=== PATIENT | female | born 1935 | race Caucasian/White ===

== ENCOUNTER → 2016-12-23 | Outpatient (CLI) | payer MEDICARE | LOC: RAD 16:02 | DX: R05 Cough (principal); R91.8 Other nonspecific abnormal finding of lung field | CPT/HCPCS: 71020 ==

== ENCOUNTER → 2020-11-06 | Outpatient (CLI) | payer MEDICARE ==
[~2020-11-06] MED LIST: ACETAMINOPHEN-1 EAC1 PO; AMLODIPINE BESYL5 MG PO; ATENOLOL25 MG PO; FERROUS SULFAT325 MG PO; FISH OIL 1,2001 EAC7 PO; FLECAINIDE ACET50 MG PO; HYDRALAZINE HCL50 MG PO; IMDUR ER TAB 3030 MG PO; LASIX20 MG PO; LOSARTAN POTAS100 MG PO; MAG-OX 400 TAB400 MG PO; MAXZIDE 37.5/21 EACH PO; MULTI-VITAMIN1 EACH PO; OMEPRAZOLE40 MG PO; PRADAXA 150 MG150 MG PO; TESSALON PERLE100 MG PO; VITAMIN B-121000 MCG PO; VITAMIN C250 MG PO
[2020-11-06 12:17] LABS: HEMOGLOBIN 7.9 gm/dl (12.3-15.3)
== END ==
LOC: LAB 11:41
PROVIDERS: Internal Medicine Hematology & Oncology; Nurse Practitioner Family
DX: I50.32 Chronic diastolic (congestive) heart failure (principal); N18.32 Chronic kidney disease, stage 3b; D64.9 Anemia, unspecified
CPT/HCPCS: 36415; 80048; 85014; 85018; 86850; 86900; 86901; 86920; P9016

== ENCOUNTER → 2020-11-07 | Outpatient (CLI) | payer MEDICARE ==
[~2020-11-07] VITALS: Ht 167.6 cm; Wt 61.7 kg
== END ==
LOC: OPSV 07:49
DX: D64.9 Anemia, unspecified (principal)
CPT/HCPCS: 36430; J1940; J7050; P9016

== ENCOUNTER 2021-09-11 14:34 | Observation (INO) | payer MEDICARE ==
[~2021-09-11] VITALS: Ht 167.6 cm; Wt 61.7 kg
[2021-09-11 16:08] LABS: HEMOGLOBIN 10.3 gm/dl (12.3-15.3); RED BLOOD COUNT 3.59 M/UL (4.00-5.10); WHITE BLOOD COUNT 7.7 K/UL (4.5-11.0)
[2021-09-12] MEDS ORDERED: K-TAB ER10 MEQ PO (00:30)
[2021-09-12] MEDS ORDERED: HYGROTON TAB 2525 MG PO (00:31)
[2021-09-12] MEDS ORDERED: COREG 12.5MG12.5 MG PO (00:31)
[2021-09-12] MEDS ORDERED: CATAPRES 0.1MG0.1 MG PO (00:32)
[2021-09-12] MEDS ORDERED: COZAAR50 MG PO (00:33)
[2021-09-12 02:42] LABS: HEMOGLOBIN 9.2 gm/dl (12.3-15.3); WHITE BLOOD COUNT 6.4 K/UL (4.5-11.0)
[2021-09-12 02:44] LABS: RED BLOOD COUNT 3.22 M/UL (4.00-5.10)
--- NOTE | 2021-09-12 08:04 | NUR ---
JIM IS AWARE OF CONSULT
--- NOTE | 2021-09-12 18:26 | NUR ---
PATIENT TRANSFERRED TO ROOM 5114. REPORT CALLED TO [facility]. TELEBOX APPLIED AWAITING STAFF TO TRANSPORT
[2021-09-13 03:10] LABS: HEMOGLOBIN 8.8 gm/dl (12.3-15.3); RED BLOOD COUNT 3.06 M/UL (4.00-5.10); WHITE BLOOD COUNT 5.9 K/UL (4.5-11.0)
[2021-09-13] MEDS ORDERED: COREG25 MG PO (11:19)
[2021-09-13] MEDS ORDERED: ZOFRAN 4 MG TAB4 MG PO (11:19)
[2021-09-13] MEDS ORDERED: ATORVASTATIN CA20 MG PO (11:19)
[2021-09-13] MEDS ORDERED: NORVASC10 MG PO (11:19)
== END 2021-09-13 14:54 | disposition home or self-care (01) ==
LOC: ER1 14:34 → PROG CARE 21:47 → CDU 21:47 → PROG CARE 23:58 → M/S 09-12 18:41
PROVIDERS: Internal Medicine; Nurse Practitioner; ADMIT Internal Medicine
DX: R55 Syncope and collapse (principal); Z20.822 Contact with and (suspected) exposure to COVID-19; I48.0 Paroxysmal atrial fibrillation; S22.41XA Multiple fractures of ribs, right side, initial encounter for closed fracture; I16.0 Hypertensive urgency; I13.0 Hypertensive heart and chronic kidney disease with heart failure and stage 1 through stage 4 chronic kidney disease, or unspecified chronic kidney disease; E11.22 Type 2 diabetes mellitus with diabetic chronic kidney disease; I50.30 Unspecified diastolic (congestive) heart failure; N18.30 Chronic kidney disease, stage 3 unspecified; I07.1 Rheumatic tricuspid insufficiency; K21.9 Gastro-esophageal reflux disease without esophagitis; D64.9 Anemia, unspecified; I27.20 Pulmonary hypertension, unspecified; W19.XXXA Unspecified fall, initial encounter; Z79.899 Other long term (current) drug therapy; Z88.0 Allergy status to penicillin
CPT/HCPCS: ECHO; 0240U; 36415; 36600; 70450; 70496; 70498; 71045; 80048; 80053; 81001; 82533; 82550; 82553; 82607; 82728; 82746; 82803; 82962; 83540; 83550; 83605; 83735; 83874; 84100; 84439; 84443; 84484; 85025; 87040; 87086; 93005; 93306; 96374; 97162; 97166; 97530; 97530-GP-CQ; 97535; 99285; G0378; J2405; Q9967

== ENCOUNTER → 2021-09-18 | Outpatient (CLI) | payer MEDICARE ==
[~2021-09-18] MED LIST changes: +ATORVASTATIN CA20 MG PO; +ATORVASTATIN CA40 MG PO; +CARVEDILOL12.5 MG PO; +CATAPRES 0.1MG0.1 MG PO; +COREG 12.5MG12.5 MG PO; +COREG25 MG PO; +COZAAR 50MG TAB50 MG PO; +COZAAR50 MG PO; +DICYCLOMINE HCL10 MG PO; +HYDRALAZINE HC100 MG PO; -HYDRALAZINE HCL50 MG PO; +HYGROTON TAB 2525 MG PO; +K-TAB ER10 MEQ PO; -LOSARTAN POTAS100 MG PO; +MAGNESIUM OXID400 M2 PO; +NORVASC10 MG PO; +POTASSIUM CHLO10 ME1 PO; +SODIUM CHLORIDE1 G1 PO; +VITAMIN D325 MC6 PO; +ZOFRAN 4 MG TAB4 MG PO
== END ==
LOC: KOH-I 10:41
DX: J18.9 Pneumonia, unspecified organism (principal); R05.9 Cough, unspecified; J98.6 Disorders of diaphragm
CPT/HCPCS: 71045

== ENCOUNTER 2021-09-19 16:08 | Inpatient (IN) | payer MEDICARE ==
[~2021-09-19] VITALS: Ht 167.6 cm; Wt 68.0 kg
[~2021-09-19 16:08] MED LIST changes: -ATORVASTATIN CA40 MG PO; -CARVEDILOL12.5 MG PO; -COZAAR 50MG TAB50 MG PO; -DICYCLOMINE HCL10 MG PO; -MAGNESIUM OXID400 M2 PO; -POTASSIUM CHLO10 ME1 PO; -SODIUM CHLORIDE1 G1 PO; -VITAMIN D325 MC6 PO
[2021-09-19] MEDS ORDERED: MAGNESIUM OXID400 M2 PO (18:08)
[2021-09-19] MEDS ORDERED: ATORVASTATIN CA40 MG PO (18:08)
[2021-09-19] MEDS ORDERED: POTASSIUM CHLO10 ME1 PO (18:09)
[2021-09-19] MEDS ORDERED: CARVEDILOL12.5 MG PO (18:09)
[2021-09-19] MEDS ORDERED: VITAMIN B-121000 MCG PO (18:10)
[2021-09-19] MEDS ORDERED: DICYCLOMINE HCL10 MG PO (18:10)
[2021-09-19] MEDS ORDERED: VITAMIN D325 MC6 PO (18:10)
[2021-09-19] MEDS ORDERED: VITAMIN C250 MG PO (18:11)
[2021-09-20 02:38] LABS: HEMOGLOBIN 8.3 gm/dl (12.3-15.3); RED BLOOD COUNT 2.95 M/UL (4.00-5.10); WHITE BLOOD COUNT 6.1 K/UL (4.5-11.0)
[2021-09-22] MEDS ORDERED: AMLODIPINE BESYL5 MG PO (11:51)
[2021-09-22] MEDS ORDERED: SODIUM CHLORIDE1 G1 PO (11:51)
[2021-09-22] MEDS ORDERED: COZAAR 50MG TAB50 MG PO (11:51)
== END 2021-09-22 15:39 | disposition home health service (06) | DRG 644 ==
LOC: MED SURG 4 17:44
PROVIDERS: ADMIT Internal Medicine
DX: E22.2 Syndrome of inappropriate secretion of antidiuretic hormone (principal); I13.0 Hypertensive heart and chronic kidney disease with heart failure and stage 1 through stage 4 chronic kidney disease, or unspecified chronic kidney disease; I50.32 Chronic diastolic (congestive) heart failure; J98.11 Atelectasis; Z20.822 Contact with and (suspected) exposure to COVID-19; N18.30 Chronic kidney disease, stage 3 unspecified; I16.0 Hypertensive urgency; K21.9 Gastro-esophageal reflux disease without esophagitis; M19.90 Unspecified osteoarthritis, unspecified site; I48.91 Unspecified atrial fibrillation; E78.5 Hyperlipidemia, unspecified; E11.22 Type 2 diabetes mellitus with diabetic chronic kidney disease; I27.20 Pulmonary hypertension, unspecified; E86.0 Dehydration; I07.1 Rheumatic tricuspid insufficiency; I48.0 Paroxysmal atrial fibrillation; Z79.01 Long term (current) use of anticoagulants; Z90.49 Acquired absence of other specified parts of digestive tract; Z88.0 Allergy status to penicillin; Z98.51 Tubal ligation status; Z90.710 Acquired absence of both cervix and uterus; Z82.49 Family history of ischemic heart disease and other diseases of the circulatory system
CPT/HCPCS: 36415; 80048; 83935; 84300; 84439; 84443; 85025; 89050; 96372; 97162; G0378; G0379; J0360; J1650; J7030